=== PATIENT | female | born 1935 | race African-American/Black ===

== ENCOUNTER 2021-10-03 13:32 | Emergency (ER) | payer OTHER ==
[~2021-10-03] VITALS: Ht 165.1 cm; Wt 62.0 kg
[2021-10-03] MEDS ORDERED: SODIUM CHLORIDE 0.9% 500 ML IV ONE (14:15)
[2021-10-03 14:39] LABS: BASOPHILS % 0.6 % (0.0-2.0); EOSINOPHILS % 1.6 % (0.0-5.0); HEMATOCRIT. 43.1 % (36.0-48.0); HEMOGLOBIN. 14.1 g/dL (12.0-16.0); LYMPHOCYTES % 60.7 % (20.0-50.0); MEAN CORPUSCULAR HEMOGLOBIN 34.6 pg (28.0-32.0); MEAN CORPUSCULAR VOLUME 105.9 fL (81.0-99.0); MEAN PLATELET VOLUME 9.4 fl (7.4-10.4); MONOCYTES % 7.5 % (2.0-8.0); NEUTROPHILS % 29.6 % (40.0-76.0); PLATELET 164 x1000/uL (130-400); RED BLOOD CELL COUNT 4.07 mill/uL (4.2-5.4); RED CELL DISTRIBUTION WIDTH 13.8 % (11.6-14.6)
[2021-10-03 14:42] LABS: CLARITY URINE CLOUDY (CLEAR); COLOR URINE DARK YELLOW (YELLOW); KETONES URINE TRACE (NEGATIVE); LEUKOCYTE ESTERASE URINE 2+ (NEGATIVE); NITRITE URINE NEGATIVE (NEGATIVE); OCCULT BLOOD URINE 1+ (NEGATIVE); PH URINE 5.5 (4.5-8.0); PROTEIN URINE 2+ (NEGATIVE); SPECIFIC GRAVITY URINE 1.023 (1.005-1.030)
[2021-10-03] MEDS ORDERED: PIPERACILLIN/TAZOBACTAM 3.375GM/50ML PREMIX IV ONE (15:00)
[2021-10-03] MEDS ORDERED: PIPERACILLIN/TAZ 3.375G PREMIX 50 ML IV NR (15:15)
[2021-10-03 15:57] LABS: CHLORIDE 102 mEq/L (98-107)
[2021-10-03] MEDS ORDERED: FUROSEMIDE 100MG/10ML VIAL IV NR (16:20)
[2021-10-03] MEDS ORDERED: ALBUTEROL (0.083%) 2.5MG/3ML NEB HHN NR (16:30)
[2021-10-03] MEDS ORDERED: DEXTROSE 50% WATER 50ML SYRINGE IV NR (16:30)
[2021-10-03] MEDS ORDERED: INSULIN REGULAR (HUMULIN R) 300UNITS/3ML VIAL IV NR (16:30)
[2021-10-03] MEDS ORDERED: CALCIUM CHLORIDE 1GM/10ML SYR IV NR (16:30)
[2021-10-03] MEDS ORDERED: ALBUTEROL (0.5%) 2.5MG/0.5ML NEB HHN ONE (16:45)
[2021-10-03 17:57] LABS: CHLORIDE 103 mEq/L (98-107)
[2021-10-03 22:45] VITALS: BP 133/102
== END 2021-10-04 00:09 | disposition short-term general hospital (02) ==
LOC: ER 13:32 → CANBEDREQ 10-04 02:03
DX: N39.0 Urinary tract infection, site not specified (principal); I11.0 Hypertensive heart disease with heart failure; I50.9 Heart failure, unspecified; I48.91 Unspecified atrial fibrillation; R56.9 Unspecified convulsions; Z88.3 Allergy status to other anti-infective agents; Z88.8 Allergy status to other drugs, medicaments and biological substances; Z20.822 Contact with and (suspected) exposure to COVID-19
CPT/HCPCS: 36415; 70450; 71045; 80048; 80053; 81003; 82962; 83605; 83880; 84145; 84484; 85025; 87040; 87086; 87426; 94640; 96361; 96365; 96375; 99291; C9803; J1815; J1940; J2543; J3490; J7030

== ENCOUNTER 2021-11-15 09:47 | Emergency (ER) | payer OTHER ==
[~2021-11-15] VITALS: Ht 162.6 cm; Wt 56.0 kg
[2021-11-15] MEDS ORDERED: KEPPSOL GT (09:59)
[2021-11-15] MEDS ORDERED: LISI-186 PO (09:59)
[2021-11-15] MEDS ORDERED: FURO-152 PO (09:59)
[2021-11-15] MEDS ORDERED: LISI40TA13 PO (10:03)
[2021-11-15] MEDS ORDERED: FURO-151 PO (10:03)
[2021-11-15] MEDS ORDERED: ZABETA (10:03)
[2021-11-15] MEDS ORDERED: KEPP500 PO (10:03)
[2021-11-15] MEDS ORDERED: DABI75CA3 PO (10:03)
[2021-11-15] MEDS ORDERED: SLO NIACIN (10:03)
[2021-11-15 11:18] LABS: BASOPHILS % 0.2 % (0.0-2.0); EOSINOPHILS % 0.1 % (0.0-5.0); HEMATOCRIT. 48.3 % (36.0-48.0); HEMOGLOBIN. 15.5 g/dL (12.0-16.0); LYMPHOCYTES % 49.4 % (20.0-50.0); MEAN CORPUSCULAR HEMOGLOBIN 33.7 pg (28.0-32.0); MEAN CORPUSCULAR VOLUME 104.9 fL (81.0-99.0); MEAN PLATELET VOLUME 9.6 fl (7.4-10.4); MONOCYTES % 5.2 % (2.0-8.0); NEUTROPHILS % 45.1 % (40.0-76.0); PLATELET 179 x1000/uL (130-400); RED CELL DISTRIBUTION WIDTH 13.7 % (11.6-14.6)
[2021-11-15 12:19] VITALS: BP 153/90
[2021-11-15 12:54] LABS: CHLORIDE 110 mEq/L (98-107)
== END 2021-11-15 14:14 | disposition home or self-care (01) ==
LOC: ER 09:47
DX: E86.0 Dehydration (principal); K59.00 Constipation, unspecified; F03.90 Unspecified dementia, unspecified severity, without behavioral disturbance, psychotic disturbance, mood disturbance, and anxiety; G40.909 Epilepsy, unspecified, not intractable, without status epilepticus; I48.91 Unspecified atrial fibrillation; I11.0 Hypertensive heart disease with heart failure; I50.9 Heart failure, unspecified; Z79.01 Long term (current) use of anticoagulants; Z88.3 Allergy status to other anti-infective agents; Z91.018 Allergy to other foods
CPT/HCPCS: 36415; 71045; 74176; 80053; 84484; 85025; 99285